=== PATIENT | female | born 1990 | race Hispanic/Latino ===

== ENCOUNTER 2019-05-07 09:11 | Day surgery (SDC) | payer BC ==
[2019-05-07] MEDS ORDERED: LACTATED RINGERS 1,000 ML IV SCH (10:00)
[2019-05-07] MEDS ORDERED: ONDANSETRON 4 MG/2 ML INJ IV PRN (10:41)
[2019-05-07] MEDS ORDERED: HYDROmorphone 1 MG/1 ML INJ IV PRN (10:41)
[2019-05-07] MEDS ORDERED: fentaNYL 100 MCG/2 ML INJ IV NR (10:41)
--- NOTE | 2019-05-07 10:42 | Anesthesia Day of Surgery ---
Anesthesia Day of Surgery - Day of Surgery Patient Examined: Yes Patient H&P Reviewed: Yes Patient is NPO: Yes
--- NOTE | 2019-05-07 10:45 | Anesthesia Consultation ---
Anesthesia Consult and Med Hx Date of service: 05/07/19 - Airway Anesthetic Teeth Evaluation: Crowns ROM Head & Neck: Adequate Mental/Hyoid Distance: Adequate Mallampati Class: Class II Intubation Access Assessment: Probably Good - Pre-Operative Health Status ASA Pre-Surgery Classification: ASA2 Proposed Anesthetic Plan: General Nerve Block: Pop - Pulmonary Hx Smoking: Yes (1/3 PPD X 10 YRS) Hx Sleep Apnea: No (FRANKLYN PRE SCREEN LOW RISK.) - Cardiovascular System Hx Hypertension: No - Central Nervous System Hx Back Pain: Yes - Other Systems Hx Cancer: No
[2019-05-07] MEDS ORDERED: BUPIVACAINE-EPINEPHRINE/PF 0.25%-1:200,000 (30 ML) VIAL INFILTRATI ONE (10:52)
[2019-05-07] MEDS ORDERED: BUPIVACAINE-EPINEPHRINE/PF 0.5%-1:200,000 (30 ML) VIAL INFILTRATI ONE (10:53)
[2019-05-07] MEDS ORDERED: MIDAZOLAM 2 MG/2 ML INJ IV NR (11:00)
[2019-05-07] MEDS: MIDAZOLAM 5 MG/5 ML INJ MDV IV NR ×2 (11:13→11:21)
[2019-05-07] MEDS ORDERED: MIDAZOLAM 5 MG/5 ML INJ MDV IV ONE (11:14)
[2019-05-07] MEDS ORDERED: VANCOMYCIN/NS 1 GM/250 ML 1 GM/250 ML BAG IV NR (12:08)
[2019-05-07] MEDS ORDERED: LIDOCAINE (1%) 10 MG/1 ML VIAL 20 ML MDV ONE (13:55)
[2019-05-07] MEDS ORDERED: BUPIVACAINE/PF (0.5%) 5 MG/1 ML 30 ML VIAL INFILTRATI ONE ×2 (13:55→14:46)
[2019-05-07] MEDS ORDERED: HYDROmorphone 1 MG/1 ML INJ ONE (13:58)
[2019-05-07] MEDS ORDERED: LIDOCAINE MPF (2%) 20 MG/1 ML VIAL 5 ML ONE (13:58)
[2019-05-07] MEDS ORDERED: PROPOFOL 200 MG/20 ML VIAL IV ONE (13:58)
[2019-05-07] MEDS ORDERED: SODIUM CHLORIDE 0.9% IRR 1,000 ML BOTTLE IR ONE (14:51)
[2019-05-07] MEDS ORDERED: ONDANSETRON 4 MG/2 ML INJ ONE (15:44)
[2019-05-07] MEDS ORDERED: KETOROLAC 30 MG/1 ML INJ ONE (15:44)
--- NOTE | 2019-05-07 16:00 | Procedure Note ---
Date of procedure: 05/07/19 Pre-op diagnosis: displaced right distal fibular fracture Post-op diagnosis: same Procedure: Open Reduction and internal fixation right distal fibula Procedure The patient was brought to the orifice in the OR table in supine position following the induction and intubation by anesthesia patient's right lower extremity was prepped and draped in the usual sterile manner. A caliper procedure was done to identify the patient and the correct operative site. The leg was then exsanguinated followed by inflation of the pneumatic tourniquet 300 mmHg. A lateral incision was made along the distal fibula this was then taken down sharply through skin and subcutaneous fracture site was identified and was manipulated into a more reduced position and held by bone clamps the patient also was noted to have a small fracture anteriorly that was stabilized with a smooth K wire next a 7 hole 3.5 plate was applied to the lateral border of the fibula this was then secured with screws of various lengths A interlocking screw was also placed in the distal anterior fragment AP and lateral views were obtained showing good reduction of the fracture and placement of the hardware Was copiously irrigated and was closed in a standard routine fashionsuture device was placed on the skin next routine. Dressings were applied as well as a well-padded posterior mold the patient was extubated and was taken to postanesthesia recovery in a stable condition. Anesthesia: OTONIEL Surgeon: SAMAN MORENO Assembler Surgical Garment: PAMELA LORENZO Estimated blood loss: minimal Pathology: none Condition: stable Disposition: PACU
[2019-05-07 16:43] VITALS: BP 120/47
--- NOTE | 2019-05-07 17:51 | XRay Report ---
Right ankle 2 views INDICATION: Right ankle pain IMPRESSION: Satisfactory postop appearance of the lateral malleolar fracture following ORIF. Ankle mo rtise is symmetric Total fluoroscopy time 10 seconds Signer Name: Santino Rodriguez MD Signed: 05/07/2019 5:46 PM Workstation Name: [id number]
--- NOTE | 2019-05-08 08:36 | Post Anesthesia Evaluation ---
- Post Anesthesia Evaluation Patient Participated: Yes Airway Patent: Yes Stable Respiratory Function: Yes Nausea/Vomiting: No Temp > 96.8F: Yes Pain Manageable: Yes Adequeate Hydration: Yes Anesthesia Complications: No Block Receding Appropriately: Yes Patient on Ventilator: No
== END 2019-05-07 17:25 | disposition home or self-care (01) ==
LOC: OR 09:11
PROVIDERS: ATTEND Orthopaedic Surgery
DX: S82.61XA Displaced fracture of lateral malleolus of right fibula, initial encounter for closed fracture (principal); F17.210 Nicotine dependence, cigarettes, uncomplicated; K21.9 Gastro-esophageal reflux disease without esophagitis; Z88.0 Allergy status to penicillin; Z79.899 Other long term (current) drug therapy; Z98.890 Other specified postprocedural states; X58.XXXA Exposure to other specified factors, initial encounter; Y93.89 Activity, other specified; Y92.89 Other specified places as the place of occurrence of the external cause; Y99.8 Other external cause status
CPT/HCPCS: 27792; 73600; 81025; C1713; J1170; J1885; J2250; J2405; J2704; J3010; J3370; J7120; 64450

== ENCOUNTER 2019-07-21 09:00 | Outpatient (CLI) | payer BC ==
--- NOTE | 2019-07-21 10:00 | XRay Report ---
HISTORY:UNSPECIFIED FRACTURE OF RT LOWER LEG COMPARISON: None. TECHNIQUE: AP lateral and obliques views were obtained FINDINGS: Bones: Evidence of reduction internal fixation distal fibular fracture. Joint spaces: Maintained. Soft tissues: Soft tissue swelling over the lateral malleolus is present. Additional findings: None. IMPRESSION: 1. Soft tissue swelling overlying the lateral malleolus with evidence of previous open reduction inte rnal fixation, does this patient have clinical evidence of infection Signer Name: Irvin Tellez MD Signed: 07/21/2019 9:56 AM Workstation Name: [id number]
== END 2019-07-21 09:01 | disposition home or self-care (01) ==
LOC: XRAY 09:00
PROVIDERS: ATTEND Orthopaedic Surgery
DX: S82.91XA Unspecified fracture of right lower leg, initial encounter for closed fracture (principal); B99.8 Other infectious disease; X58.XXXA Exposure to other specified factors, initial encounter; Y93.89 Activity, other specified; Y92.89 Other specified places as the place of occurrence of the external cause; Y99.8 Other external cause status